=== PATIENT | female | born 1995 | race Caucasian/White ===

== ENCOUNTER 2018-08-06 19:26 | Inpatient (IN) | payer MEDICAID ==
[2018-08-06] MEDS ORDERED: CARBOPROST 250 MCG INJ IM (20:00)
[2018-08-06] MEDS ORDERED: IBUPROFEN 600 MG TAB PO (20:00)
[2018-08-06] MEDS ORDERED: BUTORPHANOL 2 MG INJ IV (20:00)
[2018-08-06] MEDS ORDERED: METHYLERGONOVINE 0.2 MG INJ IM (20:00)
[2018-08-06] MEDS ORDERED: MISOPROSTOL 200 MCG TAB PR (20:00)
[2018-08-06] MEDS ORDERED: OXYTOCIN 30 UNITS/LR 500 ML IV (20:00)
[2018-08-06 20:56] LABS: ADD MAN DIFF? NO
[2018-08-06 20:59] LABS: WHITE BLOOD COUNT 8.5 10^3/ul (4.8-10.8)
[2018-08-06 20:59] LABS: BASOPHILS % 0.1 % (0.0-2.0); EOSINOPHILS % 0.2 % (0.0-7.0); HEMATOCRIT 36.1 % (37.0-47.0); HEMOGLOBIN 11.9 g/dl (12.0-16.0); LYMPHOCYTES # 1.5 10^3/ul (0.8-2.9); LYMPHOCYTES % 17.9 % (15.0-51.0); MEAN CORPUSCULAR HEMOGLOBIN 29.5 pg (29.0-33.0); MEAN CORPUSCULAR VOLUME 89.6 fl (82.0-101.0); MEAN PLATELET VOLUME 12.2 fl (7.4-10.4); MONOCYTE # 0.6 10^3/ul (0.3-0.9); MONOCYTES % 6.6 % (0.0-11.0); NEUTROPHIL # 6.3 10^3/ul (1.6-7.5); NEUTROPHILS % 74.8 % (39.0-77.0); PLATELET COUNT 192 10^3/UL (140-415); RED BLOOD COUNT 4.03 10^6/ul (4.20-5.40); RED CELL DISTRIBUTION WIDTH 14.1 % (11.5-14.5)
[2018-08-06] MEDS: LACTATED RINGER'S 1,000 ML IV (21:27)
[2018-08-06 21:37] LABS: INR 0.83; PROTIME 11.5 Sec (11.9-14.9); PT RATIO 0.9
[2018-08-06 21:38] LABS: PARTIAL THROMBOPLASTIN TIME 25.8 Sec (23.0-35.0)
[2018-08-06] MEDS ORDERED: MISOPROSTOL 50 MCG CAPSULE (22:56)
[2018-08-06] MEDS: MISOPROSTOL 50 MCG CAPSULE PO (23:04)
[2018-08-07] MEDS ORDERED: MISOPROSTOL 50 MCG CAPSULE PO
[2018-08-07] MEDS: LACTATED RINGER'S 1,000 ML IV ×3 (01:27→07:31)
[2018-08-07] MEDS: MISOPROSTOL 50 MCG CAPSULE PO ×2 (04:47→05:00)
[2018-08-07] MEDS ORDERED: FENTAnyl 2MCG/ML-ROPIV 0.2% 100 ML (07:26)
[2018-08-07] MEDS ORDERED: FENTAnyl 2MCG/ML-ROPIV 0.2% 100 ML BAG EPI (07:30)
[2018-08-07] MEDS ORDERED: ONDANSETRON 4 MG INJ IV ×2 (07:30→10:00)
[2018-08-07] MEDS ORDERED: NALOXONE (0.4 MG/ML) INJ IV (07:30)
[2018-08-07] MEDS ORDERED: DIPHENHYDRAMINE 50 MG INJ IV (07:30)
[2018-08-07] MEDS ORDERED: MINERAL OIL LIGHT 10 ML VIAL (09:11)
[2018-08-07] MEDS: OXYTOCIN 30 UNITS/LR 500 ML IV ×3 (09:20→13:54)
[2018-08-07] MEDS: METHYLERGONOVINE 0.2 MG INJ IM (09:51)
[2018-08-07] MEDS: MINERAL OIL LIGHT 10 ML VIAL TOP (09:51)
[2018-08-07] MEDS: LIDOCAINE 1% (MPF) 30 ML INJ INJ (09:52)
[2018-08-07] MEDS ORDERED: OXYCODONE/ASPIRIN (4.88/325) TAB PO (10:00)
[2018-08-07] MEDS ORDERED: OXYTOCIN 30 UNITS/LR 500 ML IV (10:00)
[2018-08-07] MEDS ORDERED: MISOPROSTOL 200 MCG TAB PR (10:00)
[2018-08-07] MEDS ORDERED: ACETAMINOPHEN 325 MG TAB PO (10:00)
[2018-08-07] MEDS ORDERED: CARBOPROST 250 MCG INJ IM (10:00)
[2018-08-07] MEDS ORDERED: SENNA/DOCUSATE NA (8.6MG/50MG) TAB PO (10:00)
[2018-08-07] MEDS ORDERED: NACL 0.9% 3 ML SYG IV (10:00)
[2018-08-07] MEDS: OXYCODONE/ASPIRIN (4.88/325) TAB PO (10:11)
[2018-08-07] MEDS: IBUPROFEN 600 MG TAB PO ×3 (12:00→23:50)
[2018-08-07 15:16] LABS: RAPID PLASMA REAGIN NONREACTIVE (NR)
[2018-08-07] MEDS: LANOLIN HPA 1 PKT TOP (17:40)
[2018-08-07] MEDS: WITCH HAZEL/GLYCERIN PAD PR (17:41)
[2018-08-07] MEDS: SENNA/DOCUSATE NA (8.6MG/50MG) TAB PO (21:00)
[2018-08-08] MEDS: IBUPROFEN 600 MG TAB PO ×3 (06:50→18:19)
[2018-08-08] MEDS: SENNA/DOCUSATE NA (8.6MG/50MG) TAB PO ×2 (08:58→21:16)
[2018-08-08 09:06] LABS: ADD MAN DIFF? NO
[2018-08-08 09:12] LABS: WHITE BLOOD COUNT 10.2 10^3/ul (4.8-10.8)
[2018-08-08 09:12] LABS: BASOPHILS % 0.2 % (0.0-2.0); EOSINOPHILS % 0.2 % (0.0-7.0); HEMATOCRIT 33.2 % (37.0-47.0); HEMOGLOBIN 10.9 g/dl (12.0-16.0); LYMPHOCYTES # 2.2 10^3/ul (0.8-2.9); LYMPHOCYTES % 21.1 % (15.0-51.0); MEAN CORPUSCULAR HEMOGLOBIN 29.8 pg (29.0-33.0); MEAN CORPUSCULAR HGB CONC 32.8 g/dl (32.0-37.0); MEAN CORPUSCULAR VOLUME 90.7 fl (82.0-101.0); MEAN PLATELET VOLUME 12.3 fl (7.4-10.4); MONOCYTE # 0.6 10^3/ul (0.3-0.9); MONOCYTES % 5.8 % (0.0-11.0); NEUTROPHIL # 7.3 10^3/ul (1.6-7.5); NEUTROPHILS % 72.2 % (39.0-77.0); PLATELET COUNT 192 10^3/UL (140-415); RED BLOOD COUNT 3.66 10^6/ul (4.20-5.40); RED CELL DISTRIBUTION WIDTH 14.2 % (11.5-14.5)
[2018-08-09] MEDS: IBUPROFEN 600 MG TAB PO ×3 (00:18→11:43)
[2018-08-09] MEDS: SENNA/DOCUSATE NA (8.6MG/50MG) TAB PO (09:00)
== END 2018-08-09 13:05 | disposition home or self-care (01) | DRG 807 ==
LOC: PP1 08-07 11:22 → L-D 19:26
PROVIDERS: Obstetrics & Gynecology
PROC: 10E0XZZ Delivery of Products of Conception, External Approach (ICD-10-PCS; principal; 2018-08-07)
PROC: 0UQMXZZ Repair Vulva, External Approach (ICD-10-PCS; 2018-08-07)
DX: O76 Abnormality in fetal heart rate and rhythm complicating labor and delivery (principal); Z37.0 Single live birth; O70.0 First degree perineal laceration during delivery; Z3A.39 39 weeks gestation of pregnancy
CPT/HCPCS: 62319; 76815; 76818; 85025; 85610; 85730; 86592; 86850; 86900; 86901; 99464